=== PATIENT | male | born 1985 | race Caucasian/White ===

== ENCOUNTER 2021-01-13 15:28 | Emergency (ER) | payer OTHER, SELFPAY ==
[2021-01-13 15:38] VITALS: BP 142/81; PULSE 55; RESP 16; O2SAT 98; BMI 34.0
--- NOTE | 2021-01-13 16:02 | CTR_ITS ---
PROCEDURE INFORMATION: Exam: CT Head Without Contrast Exam date and time: 01/13/2021 4:02 PM Age: 35 years old Clinical indication: Pain; Dizziness; Headache; Additional info: Episoded of blurred vision and dizziness TECHNIQUE: Imaging protocol: Computed tomography of the head without contrast. Radiation optimization: All CT scans at this facility use at least one of these dose optimization techniques: automated exposure control; mA and/or kV adjustment per patient size (includes targeted exams where dose is matched to clinical indication); or iterative reconstruction. COMPARISON: No relevant prior studies available. RADIATION DOSE METRICS: Total DLP (mGy-cm): 903.74 FINDINGS: Brain: The brain is unremarkable. There is no mass effect or significant white matter disease. There is no acute intracranial hemorrhage. Cerebral ventricles: There is no significant ventricular dilation. The basal cisterns are unremarkable. Paranasal sinuses: The paranasal sinuses are clear. Mastoid air cells: The mastoid air cells are clear. Bones/joints: The calvarium is intact. Soft tissues: The visible extracranial soft tissues are unremarkable. CT/CT head wo con* [id number] IMPRESSION: No acute intracranial abnormality. Radiation Dose CTDIVOL = (mGy): DLP = 903.74 (mGy-cm)
[2021-01-13 16:03] VITALS: BP 162/71; PULSE 50; RESP 19; O2SAT 99
--- NOTE | 2021-01-13 16:25 | ED_ITS ---
Documented by User: JAMES Aden 01/14/21 07:11 HPI - Dizziness General: Chief Complaint: Dizziness Stated Complaint[facility] Time Seen by Provider: 01/13/21 16:01 History of Present Illness: HPI Narrative: Patient is a 35-year-old male comes to the ED with dizziness and blurred vision. Patient says symptoms started approximately 2 days ago. He says that for the past week they have been moving into a new home. He has been doing a lot of work and lifting furniture. Patient says he knows he is not been drinking enough fluids and has been sweating a lot while working. 2 days ago while working moving some stuff he started developing dizziness and blurred vision. He describes the dizziness as the room spinning. He says when he lays down and closes his eyes it does improve. Certain movements with his head do cause symptoms to worsen and also when up and moving around. Patient said he did have 2 episodes of emesis yesterday as well due to the dizziness symptoms he was feeling. Today he woke up and him still having those dizziness symptoms and [facility] and [facility] told him to come here to the ED for further evaluation especially to rule out a possible stroke. Denies any fever, chills, chest pain, shortness of breath, abdominal pain, bladder or bowel symptoms, numbness tingling or weakness to 1 side of his body or extremities. Associated symptoms: Reports nausea and vomiting; Denies chest pain, chills, headache(s), nasal congestion or palpitations Associated neuro symptoms: Deny numbness in extremities Review of Systems Const: Denies: fever(s), chills or fatigue Eyes: Reports: blurry vision; Denies: change in vision or eye discomfort ENMT: Denies: throat pain, odynophagia, nasal discharge or nasal congestion Card: Denies: chest pain, palpitations, edema, swelling of feet/ankles, dyspnea on exertion or orthopnea Resp: Denies: dyspnea, productive cough or non-productive cough GI: Reports: nausea and vomiting; Denies: abdominal pain, diarrhea, constipation or hematochezia : Denies: flank pain, difficulty urinating, dysuria or hematuria Musc: Denies: neck pain, back pain or extremity swelling Skin/Breast: Denies: rash or new lesions Neuro: Reports: dizziness and vertigo; Denies: headache(s), numbness in extremities or weakness in extremities Physical Exam Const: COMMON NORMALS: no acute distress, patient oriented x3, healthy appearing and alert GENERAL APPEARANCE: cooperative and comfortable HENMT: COMMON NORMALS: normocephalic HEAD & SCALP: normocephalic MOUTH: moist mucous membranes abnormal Details: parched THROAT: posterior oropharynx normal and uvula midline Eye: COMMON NORMALS: Equal, round and reactive pupils present, EOMs intact bilaterally and conjunctivae normal CONJUNCTIVA: Yes conjunctivae normal PUPIL: Yes Equal, round and reactive pupils present Neck/C-Spine: COMMON NORMALS: supple GENERAL: Yes normal visual inspection Resp: COMMON NORMALS: normal respiratory effort, No retractions, No use of accessory muscles and clear to auscultation bilaterally AUSCULTATION: clear to auscultation bilaterally Cardio: COMMON NORMALS: regular rate, regular rhythm, S1 normal heart sound present, S2 normal heart sound present, No gallops present (Cardio), No clicks present (Cardio), No murmurs present (Cardio) and Peripheral pulses 2+ throughout RATE: regular rate RHYTHM: regular rhythm HEART SOUNDS: S1 normal heart sound present and S2 normal heart sound present PERIPHERAL PULSES: Peripheral pulses 2+ throughout GI: COMMON NORMALS: Normal to inspection, nondistended, normoactive bowel soun ds present, Soft to palpation, non-tender and no masses PALPATION: Yes Soft to palpation : COMMON NORMALS: Yes no CVA tenderness BLADDER/KIDNEY EXAM: Yes no CVA tenderness Back/Pelvis: COMMON NORMALS: no CVA tenderness Extremity: COMMON NORMALS: normal to inspection Neuro: COMMON NORMALS: patient oriented x3, CN's II-XII intact bilaterally, moves all extremities, no focal motor deficits, no sensory deficits noted and deep tendon reflexes 2+ bilaterally SENSORIUM/ORIENTATION: Yes alert COORDINATION/BALANCE: [id number] test normal SPEECH: speech normal GAIT: Yes Normal gait present SENSORY EXAM: Yes extremities (intact to soft touch bilaterally) MOTOR EXAM: 5/5 motor strength present throughout COORDINATION: [id number] test normal Skin: GENERAL SKIN EXAM: dry skin Course Vital Signs: Vital signs: Vital Signs Pulse Rate 46 L 01/13/21 18:33 Respiratory Rate 15 01/13/21 17:07 Blood Pressure 130/72 01/13/21 18:10 Pulse Oximetry 99 09/22/21 18:33 MDM - Dizziness Lab Data: Attestation: I reviewed the patient's lab results. Labs: Lab Results 01/13/21 01/13/21 01/13/21 16:50 16:50 16:50 WBC 7.3 10^3/uL 10^3/ uL (4.0-10.0) RBC 4.98 10^6/uL 10^6 /uL (4.1-5.3) Hgb 15.1 g/dL g/dL (11.7-16.6) Hct 45.6 % % (42.0-52.0) MCV 91.6 fl fl (80-94) MCH 30.3 pg pg (28.0-34.0) MCHC 33.1 g/dL g/dL (30.0-36.0) RDW 12.5 % % (12.1-15.1) Plt Count 310 10^3/cmm 10^3 /cmm (130-400) MPV 9.9 fL fL (7.4-10.4) Neut % (Auto) 59.3 % % Lymph % (Auto) 32.6 % % King % (Auto) 6.9 % % Eos % (Auto) 0.8 % % Baso % (Auto) 0.3 % % Neut # (Auto) 4.32 10^3/uL 10^3 /uL (1.8-7.7) Lymph # (Auto) 2.4 10^3/uL 10^3/ uL (0.8-4.8) King # (Auto) 0.5 10^3/uL 10^3/ uL (0.2-0.9) Eos # (Auto) 0.1 10^3/uL 10^3/ uL (0.0-0.8) Baso # (Auto) 0.0 10^3/uL 10^3/ uL (0.0-0.1) Nucleated RBC % (a uto) 0 % % Nucleated RBCs # 0.0 /100WBC /100W BC Sodium 136 mmol/L mmol/L (136-145) Potassium 4.4 mmol/L mmol/L (3.5-5.1) Chloride 103 mmol/L mmol/L (98-107) Carbon Dioxide 25 mmol/L mmol/L (22-29) Anion Gap 12.4 (5-19) BUN 14 mg/dL mg/dL (6-20) Creatinine 0.8 mg/dL mg/dL (0.7-1.2) GFR Calculation 111.3 mL/min mL/m in (90-130) Glucose 91 mg/dL mg/dL (65-115) Calculated Osmolal ity 282 mOsm/kg L mOs m/kg (285-295) Calcium 9.2 mg/dL mg/dL (8.5-10.5) Total Bilirubin 0.3 mg/dL mg/dL (0.15-1.2) AST 23 U/L U/L (0-40) ALT 14 U/L U/L (0-41) Alkaline Phosphata se 64 IU/L IU/L (40-130) Troponin T Baselin e 8 ng/L ng/L (0-15) Total Protein 6.5 g/dL L g/dL (6.6-8.7) Albumin 4.4 g/dL g/dL (3.5-5.2) Globulin 2.1 g/dL g/dL (1.3-4.6) EKG Data^: EKG 1: Attestation: I personally reviewed and interpreted this EKG as follows: EKG interpretation date: 01/13/21 Interpretation: Sinus bradycardia, 47 bpm, no ST segment elevation or depression seen. Discharge Plan Discharge Patient Disposition: Home Clinical Impression: Dehydration after exertion Condition: Stable Prescriptions: No Action melatonin 3 mg Tablet 3 mg PO BEDTIME RF: 0 sildenafil 100 mg Tablet 50 mg PO PRN PRN (Reason: Erectile Dysfunction) RF: 0 ibuprofen 200 mg Tablet 400 mg PO Q4H PRN (Reason: Pain) RF: 0 Discharge Orders: Discharge ED (Routine); Ordered 01/13/21 Ordered By: Dustin Thomas Referrals: Eulalia Porter MD [Primary Care Provider] - Discharge Diet: Usual diet Discharge Activity: Increase activity as tolerated Patient Instructions: Dehydration (ED), Opioid Safety Activity Restrictions/Additional Instructions: Activity as tolerated. Follow-up with primary care in 3 days for recheck. Return to the ER for worsening symptoms or new concerns. During exertion and in extreme heat try to make sure you are well-hydrated and replacing both fluids and electrolytes. Sign Out Sign Out Data: Patient Sign Out occurred on 01/13/21 at 17:17. Patient's care was discussed, and care was transferred from to Dustin Thomas. 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 [facility]. I received this patient from Leodan Salinas PA-C. On exam patient was alert oriented feeling improved after receiving 1 L of IV fluids. Differential diagnosis includes dehydration, heat exhaustion, stroke syndrome, ACS. CT of the head was negative. Laboratory values were normal. Troponin was normal. Reviewed exam with patient with recommendations for treatment and follow-up. Patient reported understanding and agreed to plan. Lab Data: Labs: Lab Results 01/13/21 01/13/21 01/13/21 16:50 16:50 16:50 WBC 7.3 10^3/uL 10^3/ uL (4.0-10.0) RBC 4.98 10^6/uL 10^6 /uL (4.1-5.3) Hgb 15.1 g/dL g/dL (11.7-16.6) Hct 45.6 % % (42.0-52.0) MCV 91.6 fl fl (80-94) MCH 30.3 pg pg (28.0-34.0) MCHC 33.1 g/dL g/dL (30.0-36.0) RDW 12.5 % % (12.1-15.1) Plt Count 310 10^3/cmm 10^3 /cmm (130-400) MPV 9.9 fL fL (7.4-10.4) Neut % (Auto) 59.3 % % Lymph % (Auto) 32.6 % % King % (Auto) 6.9 % % Eos % (Auto) 0.8 % % Baso % (Auto) 0.3 % % Neut # (Auto) 4.32 10^3/uL 10^3 /uL (1.8-7.7) Lymph # (Auto) 2.4 10^3/uL 10^3/ uL (0.8-4.8) King # (Auto) 0.5 10^3/uL 10^3/ uL (0.2-0.9) Eos # (Auto) 0.1 10^3/uL 10^3/ uL (0.0-0.8) Baso # (Auto) 0.0 10^3/uL 10^3/ uL (0.0-0.1) Nucleated RBC % (a uto) 0 % % Nucleated RBCs # 0.0 /100WBC /100W BC Sodium 136 mmol/L mmol/L (136-145) Potassium 4.4 mmol/L mmol/L (3.5-5.1) Chloride 103 mmol/L mmol/L (98-107) Carbon Dioxide 25 mmol/L mmol/L (22-29) Anion Gap 12.4 (5-19) BUN 14 mg/dL mg/dL (6-20) Creatinine 0.8 mg/dL mg/dL (0.7-1.2) GFR Calculation 111.3 mL/min mL/m in (90-130) Glucose 91 mg/dL mg/dL (65-115) Calculated Osmolal ity 282 mOsm/kg L mOs m/kg (285-295) Calcium 9.2 mg/dL mg/dL (8.5-10.5) Total Bilirubin 0.3 mg/dL mg/dL (0.15-1.2) AST 23 U/L U/L (0-40) ALT 14 U/L U/L (0-41) Alkaline Phosphata se 64 IU/L IU/L (40-130) Troponin T Baselin e 8 ng/L ng/L (0-15) Total Protein 6.5 g/dL L g/dL (6.6-8.7) Albumin 4.4 g/dL g/dL (3.5-5.2) Globulin 2.1 g/dL g/dL (1.3-4.6) Discharge Plan Discharge Patient Disposition: Home Clinical Impression: Dehydration after exertion Condition: Stable Prescriptions: No Action melatonin 3 mg Tablet 3 mg PO BEDTIME RF: 0 sildenafil 100 mg Tablet 50 mg PO PRN PRN (Reason: Erectile Dysfunction) RF: 0 ibuprofen 200 mg Tablet 400 mg PO Q4H PRN (Reason: Pain) RF: 0 Discharge Orders: Discharge ED (Routine); Ordered 01/13/21 Ordered By: Dustin Thomas Referrals: Eulalia Porter MD [Primary Care Provider] - Discharge Diet: Usual diet Discharge Activity: Increase activity as tolerated Patient Instructions: Dehydration (ED), Opioid Safety Activity Restrictions/Additional Instructions: Activity as tolerated. Follow-up with primary care in 3 days for recheck. Return to the ER for worsening symptoms or new concerns. During exertion and in extreme heat try to make sure you are well-hydrated and replacing both fluids an d electrolytes. Sign Out Sign Out Data: Patient Sign Out occurred on 01/13/21 at 17:17. Patient's care was discussed, and care was transferred from to Dustin Thomas. Coding Level of Care Code ED Cocoa Milling Machine Operator for Chg Fwd Exam Comprehensive
--- NOTE | 2021-01-13 16:25 | ECG_ITS ---
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 Measurements Intervals [place] Rate: 47 P: 61 SD: 148 QRS: 40 QRSD: 110 T: 27 QT: 439 QTc: 390 Interpretive Statements SINUS BRADYCARDIA WITH SINUS ARRHYTHMIA No previous ECG available for comparison Electronically Signed On 01-13-2021 23:33:33 CDT by Kacie Sam M.D. [id number] f
--- NOTE | 2021-01-13 16:26 | PC.PHAR ---
PT STATES HE TAKES CARE OF HIS OWN MEDICATIONS-PTS NE MED LIST HAS BUSPAR 15MG BID PT STATES HE DCED THE MEDICATION A COUPLE MONTHS AGO-
[2021-01-13] MEDS: ondansetron 2 mg/ML SDV 2 mL 4 MG IVP (16:46)
[2021-01-13] MEDS: sodium chloride 0.9% 1,000 ML 999 ML IV ×2 (16:47→17:50)
[2021-01-13 17:00] LABS: Basophils % 0.3 %; Eosinophils # 0.1 10^3/uL (0.0-0.8); Eosinophils % 0.8 %; Hematocrit 45.6 % (42.0-52.0); Hemoglobin 15.1 g/dL (11.7-16.6); Lymphocytes # 2.4 10^3/uL (0.8-4.8); Lymphocytes % 32.6 %; Mean Corpuscular HGB Conc 33.1 g/dL (30.0-36.0); Mean Corpuscular Hemoglobin 30.3 pg (28.0-34.0); Mean Corpuscular Volume 91.6 fl (80-94); Mean Platelet Volume 9.9 fL (7.4-10.4); Monocytes # 0.5 10^3/uL (0.2-0.9); Monocytes % 6.9 %; Neutrophils # 4.32 10^3/uL (1.8-7.7); Neutrophils % 59.3 %; Nucleated Red Blood Cells % 0 %; Platelet Count 310 10^3/cmm (130-400); Red Blood Count 4.98 10^6/uL (4.1-5.3); Red Cell Distribution Width 12.5 % (12.1-15.1); White Blood Count 7.3 10^3/uL (4.0-10.0)
[2021-01-13] MEDS: meclizine 25 mg tablet PO (17:04)
[2021-01-13 17:07] VITALS: BP 127/71; BP 132/81; BP 144/59; BP 150/44; PULSE 45; PULSE 50; PULSE 52; PULSE 53; RESP 15; O2SAT 99
[2021-01-13 17:25] LABS: Troponin(5th) Baseline 8 ng/L (0-15)
[2021-01-13 17:26] LABS: Alanine Aminotransferase 14 U/L (0-41); Albumin Level 4.4 g/dL (3.5-5.2); Alkaline Phosphatase 64 IU/L (40-130); Blood Urea Nitrogen 14 mg/dL (6-20); Calcium 9.2 mg/dL (8.5-10.5); Carbon Dioxide 25 mmol/L (22-29); Chloride 103 mmol/L (98-107); Globulin 2.1 g/dL (1.3-4.6); Glomerular Filtration Rate 111.3 mL/min (90-130); Glucose 91 mg/dL (65-115); Osmolality Calculated 282 mOsm/kg (285-295); Sodium 136 mmol/L (136-145); Total Bilirubin 0.3 mg/dL (0.15-1.2); Total Protein 6.5 g/dL (6.6-8.7)
[2021-01-13 17:35] LABS: Anion Gap 12.4 (5-19); Aspartate Amino Transferase 23 U/L (0-40); Potassium 4.4 mmol/L (3.5-5.1)
[2021-01-13 18:10] VITALS: BP 130/72; PULSE 55; O2SAT 99
[2021-01-13 18:33] VITALS: PULSE 46; O2SAT 99
== END 2021-01-13 18:34 | disposition home or self-care (01) ==
PROVIDERS: Physician Assistant; Emergency Provider Nurse Practitioner Family; PCP Family Medicine
DX: E86.0 Dehydration (principal)
CPT/HCPCS: 70450; 80053; 84484; 85025; 93005; 96361; 96374; 99284; J2405; J7030; J8597

== ENCOUNTER → 2023-06-14 10:53 | Outpatient (BNVA) | payer OTHER, SELFPAY | PROVIDERS: PCP Family Medicine; Referring Provider Family Medicine; Visit Provider Surgery | DX: Z12.11 Encounter for screening for malignant neoplasm of colon (principal); R19.7 Diarrhea, unspecified | CPT/HCPCS: 99203 ==

== ENCOUNTER 2023-07-12 10:40 | Day surgery (SDC) | payer OTHER, SELFPAY ==
[2023-07-12 11:32] VITALS: BP 150/76; PULSE 77; RESP 16; TEMP 36.3; O2SAT 97
--- NOTE | 2023-07-12 11:41 | W.PM.OPSFHP ---
Same Day Surgery H&P Indication for Procedure/HPI DATE OF PROCEDURE: July 12, 2023 CHIEF COMPLAINT/INDICATIONFOR SURGICAL PROCEDURE: need for screening colonoscopy PREOP DIAGNOSIS: need for screening colonoscopy PLANNED PROCEDURE: Operation Date: 07/12/23 11:40 Proposed Procedures p 76821 dx colon , G0105 screen colon H risk Z12.11(Not Applicable) - Get Cowart MD Medications/Allergies* Home Medications Medication Instructions Recorded Confirmed Type ibuprofen 200 mg tablet 400 mg PO Q4H PRN Pain 01/13/21 07/10/23 History melatonin 3 mg tablet 3 mg PO BEDTIME 01/13/21 07/10/23 History sildenafil 100 mg tablet 50 mg PO PRN PRN Erectile 01/13/21 07/10/23 History Dysfunction atorvastatin 20 mg tablet 20 mg PO DAILY 07/10/23 07/12/23 History Allergies/Adverse Reactions Allergy/AdvReac Type Severity Reaction Status Date / Time No Known Allergies Allergy Unverified 06/14/23 11:06 Pertinent History/Comorbid Conditions* Family History (Updated 06/14/23 @ 11:13 by JESSICA Mosley) Cancer Grandfather skin cancer Social History Smoking and tobacco/nicotine status: never used tobacco/nicotine Alcohol intake: current Alcohol intake frequency: holidays/special occasions only Pertinent Exam Findings alert, oriented x 3 and clear to auscultation bilaterally Recommendations Surgery/Procedure today Coding Level of Care Code Acute Code for Yvonne Moreira
--- NOTE | 2023-07-12 11:48 | P.ANESASSM_ITS ---
Pre-Anesthetic Assessment Height/Weight: Height 1.88 m Temp Pulse Resp BP Pulse Ox O2 Del Method 97.3 F L 77 16 150/76 97 Room Air 07/12/23 11:32 07/12/23 11:32 07/12/23 11:32 07/12/23 11:32 07/12/23 11:32 07/12/23 11:32 Preop Diagnosis: need for screening colonoscopy Operation Date: 07/12/23 11:40 Proposed Procedures p 43758 dx colon , G0105 screen colon H risk Z12.11(Not Applicable) - Get Cowart MD Familial anesthetic complications: none Was Beta [place] taken within 24 hours: N/A Was Clonidine taken within 24 hours: N/A Last intake: Intake Last Liquid Date 07/11/23 Last Liquid Time 22:00 Last Solid Date 07/10/23 Last Solid Time 18:00 Social No alcohol and No tobacco Exam alert, oriented x 3, clear to auscultation bilaterally and regular rate & rhythm Airway Submandibular: within normal limits Cervical ROM: within normal limits Mallampati: Class II Dentition: full Pulmonary None reported CV/HEM Hypertension None reported Hepatic None reported GI None reported Metabolic Hyperlipidemia [facility] [place] Fibromyalgia Neuropsych Anxiety, Depression and Headache Anesthetic Plan ASA status: 2 Anesthesia: MAC Risk of > 500 ml blood loss (7ml/kg in children): No Medications/Allergies Home Medications Medication Instructions Recorded Confirmed Last Taken Type ibuprofen 200 mg tablet 400 mg PO Q4H PRN Pain 01/13/21 07/10/23 2 Weeks Ago History ~06/26/23 melatonin 3 mg tablet 3 mg PO BEDTIME 01/13/21 07/10/23 07/08/23 History sildenafil 100 mg tablet 50 mg PO PRN PRN Erectile 01/13/21 07/10/23 2 Weeks Ago History Dysfunction ~06/26/23 atorvastatin 20 mg tablet 20 mg PO DAILY 07/10/23 07/12/23 07/11/23 History Allergies Allergy/AdvReac Type Severity Reaction Status Date / Time No Known Allergies Allergy Unverified 06/14/23 11:06 [facility] Anesthesia Family History (Updated 06/14/23 @ 11:13 by JESSICA Mosley) Grandfather Cancer skin cancer Social History (Updated 06/14/23 @ 11:13 by JESSICA Mosley) Smoking and tobacco/nicotine status: never used tobacco/nicotine Alcohol intake: current Alcohol intake frequency: holidays/special occasions only Data Anesthesia Cardiac Studies: No Data to Display
[2023-07-12] MEDS: sodium chloride 0.9% 1,000 ML 30 ML IV (11:55)
[2023-07-12 12:22] VITALS: BP 159/97; PULSE 69; RESP 12; TEMP 36.3; O2SAT 96
[2023-07-12 12:31] VITALS: BP 119/81; PULSE 82; RESP 18; O2SAT 98
[2023-07-12 12:40] VITALS: BP 123/86; PULSE 72; RESP 18; O2SAT 95
--- NOTE | 2023-07-12 12:50 | ANE.PACU2 ---
Inpatient post-anesthesia follow up: Airway intact: Yes Vital signs: Temperature 97.4 F Pulse Rate 72 Respiratory Rate 18 Blood Pressure 123/86 Pulse Oximetry 95 Oxygen Delivery Me thod Room Air Oxygen Flow Rate Fraction of Inspir ed Oxygen Hydration adequate: Yes Nausea and vomiting: No Pain level: 1 Mental status: Baseline
== END 2023-07-12 12:54 | disposition home or self-care (01) ==
PROVIDERS: PCP Family Medicine; Visit Provider Surgery
PROC: 0DJD8ZZ Inspection of Lower Intestinal Tract, Via Natural or Artificial Opening Endoscopic (ICD-10-PCS; CPT 45378; principal; 2023-07-12 11:40)
DX: Z12.11 Encounter for screening for malignant neoplasm of colon (principal); I10 Essential (primary) hypertension; E78.5 Hyperlipidemia, unspecified; M79.7 Fibromyalgia
CPT/HCPCS: 45378; J2704; J7030

== ENCOUNTER 2024-01-01 14:34 | Emergency (ER) | payer OTHER, SELFPAY ==
[2024-01-01 14:37] VITALS: BP 171/87; PULSE 71; TEMP 36.7; O2SAT 98; BMI 32.7
--- NOTE | 2024-01-01 14:41 | ECG_ITS ---
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 Measurements Intervals [place] Rate: 72 P: 23 WI: 129 QRS: 29 QRSD: 104 T: 24 QT: 360 QTc: 396 Interpretive Statements SINUS RHYTHM WITH OCCASIONAL VENTRICULAR PREMATURE COMPLEXES Compared to ECG 01/13/2021 16:36:56 Ventricular premature complex(es) now present Sinus bradycardia no longer present Sinus arrhythmia no longer present Electronically Signed On 01-02-2024 7:47:33 CDT by Blue Mario M.D. [id number] f
--- NOTE | 2024-01-01 14:42 | XRR_ITS ---
PROCEDURE INFORMATION: Exam: XR Chest Exam date and time: 01/01/2024 3:04 PM Age: 38 years old Clinical indication: Pain; Angina pectoris; Additional info: Cp TECHNIQUE: Imaging protocol: Radiologic exam of the chest. Views: 1 view. COMPARISON: No relevant prior studies available. FINDINGS: Lungs: Unremarkable. No consolidation. Pleural spaces: Unremarkable. No pleural effusion. No pneumothorax. Heart/Mediastinum: Unremarkable. No cardiomegaly. Bones/joints: Unremarkable. XR/XR chest 1V portable [id number] IMPRESSION: No acute findings.
[2024-01-01 15:03] LABS: Basophils # 0.1 10^3/uL (0.0-0.1); Basophils % 0.6 %; Eosinophils # 0.1 10^3/uL (0.0-0.8); Eosinophils % 0.7 %; Hematocrit 44.9 % (37-53); Lymphocytes # 2.6 10^3/uL (0.8-4.8); Mean Corpuscular HGB Conc 33.4 g/dL (30-55); Mean Corpuscular Hemoglobin 30.2 pg (27-33); Mean Corpuscular Volume 90.3 fl (82-101); Monocytes # 0.5 10^3/uL (0.2-0.9); Monocytes % 5.7 %; Neutrophils # 5.69 10^3/uL (1.8-7.7); Neutrophils % 63.8 %; Nucleated Red Blood Cells % 0 %; Platelet Count 298 10^3/cmm (157-399); Red Blood Count 4.97 10^6/uL (3.85-5.65); Red Cell Distribution Width 12.4 % (12.1-15.1); White Blood Count 8.91 10^3/uL (3.29-11.43)
[2024-01-01 15:23] LABS: Alanine Aminotransferase 25 U/L (0-41); Albumin Level 4.7 g/dL (3.5-5.2); Alkaline Phosphatase 65 U/L (40-130); Anion Gap 15.3 (5-19); Aspartate Amino Transferase 20 U/L (0-40); Blood Urea Nitrogen 20 mg/dL (6-20); Calcium 9.4 mg/dL (8.5-10.5); Carbon Dioxide 27 mmol/L (22-29); Chloride 105 mmol/L (98-107); Creatinine Clr Calc Pharmacy 138.0692; Globulin 2.2 g/dL (1.3-4.6); Glomerular Filtration Rate 84.5 mL/min (90-130); Glucose 94 mg/dL (65-115); Lipase 29 U/L (13-60); Osmolality Calculated 298 mOsm/kg (285-295); Potassium 4.3 mmol/L (3.5-5.1); Sodium 143 mmol/L (136-145); Total Bilirubin 0.4 mg/dL (0.15-1.2); Total Protein 6.9 g/dL (6.6-8.7)
[2024-01-01 15:26] LABS: Troponin(5th) Baseline < 6 ng/L (0-15)
--- NOTE | 2024-01-01 16:33 | ED_ITS ---
Documented by User: JAMES Oropeza 01/01/24 16:56 HPI - Chest Pain 2 General: Chief Complaint: Chest Pain Stated Complaint: chest pains Time Seen by Provider: 01/01/24 16:21 Source: patient Mode of arrival: ambulatory Limitations: no limitations History of Present Illness: Patient is a nice 38-year-old male who presents to the ED today with a complaint of chest soreness and an episode of chest pain that occurred approximately 3 to 4 days ago. Patient states last he was walking to the kitchen after he had drank a root beer float when he began feeling like he was going to pass out. He states he felt dizzy and lightheaded so he lowered himself to the ground. He states shortly after that he began developing chest pain so he went and laid down downstairs. He felt like his heart was thumping hard . Patient states he was able to fall asleep and when he awoke he felt much better but states the center of his chest felt sore and states that feeling has persisted over the weekend. Patient states he is fairly healthy. He is on atorvastatin. Patient states he has been on semaglutide over the past several months and has lost approximately 30 pounds. Reports occasional marijuana use and social alcohol use. MD complaint: chest pain Onset (ago): day(s) Timing of current episode: now resolved Prior episodes: No Onset: during rest Pain location: substernal Pain radiation: none Severity: moderate Relieving factors: rest Exacerbating factors: nothing Associated symptoms: Reports palpitations; Deny abdominal pain, dyspnea, fever(s), nausea, syncope or vomiting Treatment prior to arrival: none Risk Factors: Coronary artery disease risk factors: hyperlipidemia Thoracic aortic dissection risk factors: none Related Data Home Medications Medication Instructions Recorded Confirmed ibuprofen 200 mg tablet 400 mg PO Q4H PRN Pain 01/13/21 07/10/23 melatonin 3 mg tablet 3 mg PO BEDTIME 01/13/21 07/10/23 sildenafil 100 mg tablet 50 mg PO PRN PRN Erectile 01/13/21 07/10/23 Dysfunction atorvastatin 20 mg tablet 20 mg PO DAILY 07/10/23 07/12/23 Allergies Allergy/AdvReac Type Severity Reaction Status Date / Time No Known Allergies Allergy Verified 01/01/24 14:48 Review of Systems 2 Const: Denies: fever(s), chills, body aches, fatigue or malaise Eyes: Denies: change in vision, blurry vision, photophobia, floaters or seeing flashes Card: Reports: chest pain, palpitations and pre-syncope; Denies: irregular heart rhythm, edema, swelling of feet/ankles, lightheadedness, syncope, dyspnea on exertion, orthopnea, leg pain with exertion or acrocyanosis Resp: Denies: dyspnea, productive cough or pain on inspiration GI: Denies: abdominal pain, nausea, vomiting, heartburn or diarrhea : Denies: flank pain, difficulty urinating or dysuria Musc: Denies: neck pain, back pain, extremity pain, extremity swelling or joint pain Skin/Breast: Denies: rash Neuro: Denies: headache(s), numbness in extremities, weakness in extremities, sensory changes or dizziness PFSH ED 2 PFSH: Family History Grandfather Cancer skin cancer Social History Smoking and tobacco/nicotine status: never used tobacco/nicotine Alcohol intake: current Alcohol intake frequency: holidays/special occasions only Physical Exam 2 Const: COMMON NORMALS: no acute distress, average body habitus, patient oriented x3, no limitations, healthy appearing, alert and well nourished G ENERAL APPEARANCE: cooperative ORIENTATION/CONSCIOUSNESS: Yes awake, Yes oriented to person, Yes oriented to place and Yes oriented to time HENMT: COMMON NORMALS: normocephalic and atraumatic HEAD & SCALP: normal to inspection, normocephalic and atraumatic Neck/C-Spine: COMMON NORMALS: full ROM, no lymphadenopathy, supple and no meningeal signs Chest: COMMONS NORMALS: normal inspection of the chest and normal palpation of entire chest wall Resp: COMMON NORMALS: normal respiratory effort and clear to auscultation bilaterally AUSCULTATION: clear to auscultation bilaterally Cardio: COMMON NORMALS: regular rate and regular rhythm RATE: regular rate RHYTHM: regular rhythm GI: COMMON NORMALS: Normal to inspection, nondistended, normoactive bowel sounds present, Soft to palpation, non-tender, No hepatosplenomegaly present and no masses PALPATION: Yes Soft to palpation and Yes No hepatosplenomegaly present : COMMON NORMALS: Yes no CVA tenderness BLADDER/KIDNEY EXAM: Yes no CVA tenderness Back/Pelvis: COMMON NORMALS: no CVA tenderness and thoracic and lumbar spine normal to inspection Extremity: COMMON NORMALS: normal to inspection, no clubbing, cyanosis or edema, no calf tenderness and no pedal edema GENERAL: Yes normal exam except as noted Neuro: CHAVA COMA SCALE: document GCS findings [place] coma scale eye opening: Spontaneous [place] coma scale verbal response: Orientated [place] coma scale motor response: Obey commands [place] coma scale total score: 15 COMMON NORMALS: patient oriented x3, moves all extremities, no focal motor deficits, no sensory deficits noted and gait normal SENSORIUM/ORIENTATION: Yes alert, Yes oriented to person, Yes oriented to place and Yes oriented to time MENINGEAL SIGNS: Yes no meningeal signs Skin: COMMON NORMALS: no rashes or lesions noted GENERAL SKIN EXAM: no rashes or lesions noted Course 2 Vital Signs: Vital signs: Vital Signs Temperature 98.1 F 01/01/24 14:37 Pulse Rate 86 01/01/24 17:00 Respiratory Rate 18 01/01/24 17:00 Blood Pressure 127/80 01/01/24 17:00 Pulse Oximetry 96 01/01/24 17:00 Oxygen Delivery Me thod Room Air 01/01/24 16:48 MDM - Chest Pain Medical Records I reviewed the patient's medical records. Lab Data I reviewed the patient's lab results. 01/01/24 14:57 01/01/24 14:57 Laboratory Results WBC 8.91 10^3/uL (3.29-11.43) 01/01/24 14:57 RBC 4.97 10^6/uL (3.85-5.65) 01/01/24 14:57 Hgb 15.00 g/dL (11.27-16.99) 01/01/24 14:57 Hct 44.9 % (37-53) 01/01/24 14:57 MCV 90.3 fl (82-101) 01/01/24 14:57 MCH 30.2 pg (27-33) 01/01/24 14:57 MCHC 33.4 g/dL (30-55) 01/01/24 14:57 RDW 12.4 % (12.1-15.1) 01/01/24 14:57 Plt Count 298 10^3/cmm (157-399) 01/01/24 14:57 MPV 10.0 fL (7.4-10.4) 01/01/24 14:57 Neut % (Auto) 63.8 % 01/01/24 14:57 Lymph % (Auto) 29.0 % 01/01/24 14:57 [place] % (Auto) 5.7 % 01/01/24 14:57 Eos % (Auto) 0.7 % 01/01/24 14:57 Baso % (Auto) 0.6 % 01/01/24 14:57 Neut # (Auto) 5.69 10^3/uL (1.8-7.7) 01/01/24 14:57 Lymph # (Auto) 2.6 10^3/uL (0.8-4.8) 01/01/24 14:57 [place] # (Auto) 0.5 10^3/uL (0.2-0.9) 01/01/24 14:57 Eos # (Auto) 0.1 10^3/uL (0.0-0.8) 01/01/24 14:57 Baso # (Auto) 0.1 10^3/uL (0.0-0.1) 01/01/24 14:57 Nucleated RBC % (auto) 0 % 01/01/24 14:57 Nucleated RBCs # 0.0 /100WBC 01/01/24 14:57 D-Dimer 0.31 ug/mLFEU (0-0.59) 01/01/24 16:38 Sodium 143 mmol/L (136-145) 01/01/24 14:57 Potassium 4.3 mmol/L (3.5-5.1) 01/01/24 14:57 Chloride 105 mmol/L (98-107) 01/01/24 14:57 Carbon Dioxide 27 mmol/L (22-29) 01/01/24 14:57 Anion Gap 15.3 (5-19) 01/01/24 14:57 BUN 20 mg/dL (6-20) 01/01/24 14:57 Creatinine 1.0 mg/dL (0.7-1.2) 01/01/24 14:57 GFR Calculation 84.5 mL/min (90-130) L 01/01/24 14:57 Glucose 94 mg/dL (65-115) 01/01/24 14:57 Calculated Osmolality 298 mOsm/kg (285-295) H 01/01/24 14:57 Calcium 9.4 mg/dL (8.5-10.5) 01/01/24 14:57 Total Bilirubin 0.4 mg/dL (0.15-1.2) 01/01/24 14:57 AST 20 U/L (0-40) 01/01/24 14:57 ALT 25 U/L (0-41) 01/01/24 14:57 Alkaline Phosphatase 65 U/L (40-130) 01/01/24 14:57 Troponin T Baseline < 6 ng/L (0-15) 01/01/24 14:57 Troponin T 120 Minute 6.00 ng/L (0-15) 01/01/24 16:45 Delta Troponin T 0.00380 ABS# (0-10) 01/01/24 16:45 Total Protein 6.9 g/dL (6.6-8.7) 01/01/24 14:57 Albumin 4.7 g/dL (3.5-5.2) 01/01/24 14:57 Globulin 2.2 g/dL (1.3-4.6) 01/01/24 14:57 Lipase 29 U/L (13-60) 01/01/24 14:57 XR interpretation done by ED provider, pending radiology final review EKG Data EKG 1: EKG interpretation date: 01/01/24 EKG interpretation time: 14:41 Interpretation: Sinus rhythm with occasional PVCs Rate [address] elevation or depression changes noted EKG 2: EKG interpretation date: 01/01/24 EKG interpretation time: 16:41 Interpretation: Sinus rhythm Rate [address] elevation or depression changes noted No PVCs now when compared to previous EKG performed earlier today Discharge Plan Discharge Patient Disposition: Home Clinical Impression: Chest pain Qualifiers: Chest pain type: unspecified Qualified Code(s): R07.9 - Chest pain, unspecified Condition: Stable Prescriptions: No Action melatonin 3 mg Tablet 3 mg PO BEDTIME sildenafil 100 mg Tablet 50 mg PO PRN PRN (Reason: Erectile Dysfunction) ibuprofen 200 mg Tablet 400 mg PO Q4H PRN (Reason: Pain) atorvastatin 20 mg Tablet 20 mg PO DAILY Discharge Orders: Discharge ED (Routine); Ordered 01/01/24 Ordered By: Get Cintron Referrals: Eulalia Porter MD [Primary Care Provider] - Discharge Diet: Usual diet Discharge Activity: Increase activity as tolerated Patient Instructions: Chest Pain (ED) Activity Restrictions/Additional Instructions: [facility]. Return with any new or concerning symptoms you may have. Continue taking current medications as prescribed. Sign Out Sign Out Data: Patient Sign Out occurred on 01/01/24 at 17:11. Patient's care was discussed, and care was transferred from JAMES Oropeza to JAMES Johnson. Coding Level of Care Code ED Drop Wire Hanger for Chg Fwd Documented by User: JAMES Johnson 01/01/24 17:34 HPI - Chest Pain 2 General: Chief Complaint: Chest Pain Stated Complaint: chest pains Time Seen by Provider: 01/01/24 16:21 Related Data Home Medications Medication Instructions Recorded Confirmed ibuprofen 200 mg tablet 400 mg PO Q4H PRN Pain 01/13/21 07/10/23 melatonin 3 mg tablet 3 mg PO BEDTIME 01/13/21 07/10/23 sildenafil 100 mg tablet 50 mg PO PRN PRN Erectile 01/13/21 07/10/23 Dysfunction atorvastatin 20 mg tablet 20 mg PO DAILY 07/10/23 07/12/23 Allergies Allergy/AdvReac Type Severity Reaction Status Date / Time No Known Allergies Allergy Verified 01/01/24 14:48 PFSH ED 2 PFSH: Family History Grandfather Cancer skin cancer Social History Smoking and tobacco/nicotine status: never used tobacco/nicotine Alcohol intake: current Alcohol intake frequency: holidays/special occasions only Physical Exam 2 Neuro: CHAVA COMA SCALE: document GCS findings [place] coma scale total score: 15 Course 2 Vital Signs: Vital signs: Vital Signs Temperature 98.1 F 01/01/24 14:37 Pulse Rate 86 01/01/24 17:00 Respiratory Rate 18 01/01/24 17:00 Blood Pressure 127/80 01/01/24 17:00 Pulse Oximetry 96 01/01/24 17:00 Oxygen Delivery Ia thod Room Air 01/01/24 16:48 MDM - Chest Pain Medical Decision Making Patient care transferred to [place] by mid shift. I been complaining of chest pains. EKG ordered showing normal sinus rhythm with occasional PVCs on initial tracing, repeat tracing no longer showed these and again showed normal sinus rhythm rate of 66 with no STEMI. His chest x-ray obtained did not show any acute findings. Additionally his initial and repeat troponins were both normal and D-dimer negative. Rest of his lab work unremarkable. He is informed to follow-up with [facility] for further outpatient testing and return with any new or worsening. Lab Data 01/01/24 14:57 01/01/24 14:57 Laboratory Results WBC 8.91 10^3/uL (3.29-11.43) 01/01/24 14:57 RBC 4.97 10^6/uL (3.85-5.65) 01/01/24 14:57 Hgb 15.00 g/dL (11.27-16.99) 01/01/24 14:57 Hct 44.9 % (37-53) 01/01/24 14:57 MCV 90.3 fl (82-101) 01/01/24 14:57 MCH 30.2 pg (27-33) 01/01/24 14:57 MCHC 33.4 g/dL (30-55) 01/01/24 14:57 RDW 12.4 % (12.1-15.1) 01/01/24 14:57 Plt Count 298 10^3/cmm (157-399) 01/01/24 14:57 MPV 10.0 fL (7.4-10.4) 01/01/24 14:57 Neut % (Auto) 63.8 % 01/01/24 14:57 Lymph % (Auto) 29.0 % 01/01/24 14:57 [place] % (Auto) 5.7 % 01/01/24 14:57 Eos % (Auto) 0.7 % 01/01/24 14:57 Baso % (Auto) 0.6 % 01/01/24 14:57 Neut # (Auto) 5.69 10^3/uL (1.8-7.7) 01/01/24 14:57 Lymph # (Auto) 2.6 10^3/uL (0.8-4.8) 01/01/24 14:57 [place] # (Auto) 0.5 10^3/uL (0.2-0.9) 01/01/24 14:57 Eos # (Auto) 0.1 10^3/uL (0.0-0.8) 01/01/24 14:57 Baso # (Auto) 0.1 10^3/uL (0.0-0.1) 01/01/24 14:57 Nucleated RBC % (auto) 0 % 01/01/24 14:57 Nucleated RBCs # 0.0 /100WBC 01/01/24 14:57 D-Dimer 0.31 ug/mLFEU (0-0.59) 01/01/24 16:38 Sodium 143 mmol/L (136-145) 01/01/24 14:57 Potassium 4.3 mmol/L (3.5-5.1) 01/01/24 14:57 Chloride 105 mmol/L (98-107) 01/01/24 14:57 Carbon Dioxide 27 mmol/L (22-29) 01/01/24 14:57 Anion Gap 15.3 (5-19) 01/01/24 14:57 BUN 20 mg/dL (6-20) 01/01/24 14:57 Creatinine 1.0 mg/dL (0.7-1.2) 01/01/24 14:57 GFR Calculation 84.5 mL/min (90-130) L 01/01/24 14:57 Glucose 94 mg/dL (65-115) 01/01/24 14:57 Calculated Osmolality 298 mOsm/kg (285-295) H 01/01/24 14:57 Calcium 9.4 mg/dL (8.5-10.5) 01/01/24 14:57 Total Bilirubin 0.4 mg/dL (0.15-1.2) 01/01/24 14:57 AST 20 U/L (0-40) 01/01/24 14:57 ALT 25 U/L (0-41) 01/01/24 14:57 Alkaline Phosphatase 65 U/L (40-130) 01/01/24 14:57 Troponin T Baseline < 6 ng/L (0-15) 01/01/24 14:57 Troponin T 120 Minute 6.00 ng/L (0-15) 01/01/24 16:45 Delta Troponin T 0.80213 ABS# (0-10) 01/01/24 16:45 Total Protein 6.9 g/dL (6.6-8.7) 01/01/24 14:57 Albumin 4.7 g/dL (3.5-5.2) 01/01/24 14:57 Globulin 2.2 g/dL (1.3-4.6) 01/01/24 14:57 Lipase 29 U/L (13-60) 01/01/24 14:57 ED provider radiology interpretation(s): Chest x-ray did not show any acute cardiopulmonary process Discharge Plan Discharge Patient Disposition: Home Clinical Impression: Chest pain Qualifiers: Chest pain type: unspecified Qualified Code(s): R07.9 - Chest pain, unspecified Condition: Stable Prescriptions: No Action melatonin 3 mg Tablet 3 mg PO BEDTIME sildenafil 100 mg Tablet 50 mg PO PRN PRN (Reason: Erectile Dysfunction) ibuprofen 200 mg Tablet 400 mg PO Q4H PRN (Reason: Pain) atorvastatin 20 mg Tablet 20 mg PO DAILY Discharge Orders: Discharge ED (Routine); Ordered 01/01/24 Ordered By: Get Cintron Referrals: Eulalia Porter MD [Primary Care Provider] - Discharge Diet: Usual diet Discharge Activity: Increase activity as tolerated Patient Instructions: Chest Pain (ED) Activity Restrictions/Additional Instructions: [facility] as [facility]. Return with any new or concerning symptoms you may have. Continue taking current medications as prescribed. Sign Out Sign Out Data: Patient Sign Out occurred on 01/01/24 at 17:11. Patient's care was discussed, and care was transferred from JAMES Oropeza to JAMES Johnson. Coding Level of Care Code ED Drop Wire Hanger for Yvonne Moreira
--- NOTE | 2024-01-01 16:42 | ECG_ITS ---
[facility] Test Date: 2024-01-01 Pat Name: Valdo Greenwood Department: Room: Gender: Male [employer]: : 1985 Requested By: Rosanne Perez Order Number: [id number] Marcelo MD: Blue Mario M.D. Measurements Intervals [place] Rate: 66 P: 52 MS: 154 QRS: 35 QRSD: 104 T: 29 QT: 371 QTc: 390 Interpretive Statements SINUS RHYTHM Compared to ECG 01/01/2024 14:41:13 Ventricular premature complex(es) no longer present Electronically Signed On 01-02-2024 7:52:52 CDT by Blue Mario M.D. [id number]
[2024-01-01 16:48] VITALS: BP 126/82; RESP 16; O2SAT 96
[2024-01-01 17:00] VITALS: BP 127/80; PULSE 86; RESP 18; O2SAT 96
[2024-01-01 17:11] LABS: D Dimer 0.31 ug/mLFEU (0-0.59)
[2024-01-01 17:16] LABS: Troponin 5 2HR Delta 0.00001 ABS# (0-10)
[2024-01-01 17:45] VITALS: BP 122/87; PULSE 66; RESP 14; O2SAT 98
== END 2024-01-01 17:46 | disposition home or self-care (01) ==
PROVIDERS: Emergency Medicine; Physician Assistant; Emergency Provider Physician Assistant; PCP Family Medicine
DX: R07.9 Chest pain, unspecified (principal); I49.3 Ventricular premature depolarization
CPT/HCPCS: 36415; 71045; 80053; 83690; 84484; 85025; 85378; 93005; 99285